=== PATIENT | male | born 1960 | race Caucasian/White ===

== ENCOUNTER → 2019-05-31 | Outpatient (CLI) | payer MEDICARE, MEDICAID, SELFPAY | PROVIDERS: Family Provider Nurse Practitioner; Visit Provider Nurse Practitioner | DX: C18.4 Malignant neoplasm of transverse colon (principal); R91.1 Solitary pulmonary nodule; R53.83 Other fatigue; G62.0 Drug-induced polyneuropathy; T45.1X5A Adverse effect of antineoplastic and immunosuppressive drugs, initial encounter; I10 Essential (primary) hypertension; I95.9 Hypotension, unspecified; E78.5 Hyperlipidemia, unspecified; J44.9 Chronic obstructive pulmonary disease, unspecified; G47.33 Obstructive sleep apnea (adult) (pediatric); F32.9 Major depressive disorder, single episode, unspecified; Z90.49 Acquired absence of other specified parts of digestive tract; Z86.79 Personal history of other diseases of the circulatory system | CPT/HCPCS: 99214 ==

== ENCOUNTER 2019-06-13 12:55 | Outpatient (CLI) | payer MEDICARE, MEDICAID, SELFPAY | END 2019-06-13 12:56 | disposition home or self-care (01) | LOC: ONCMED 13:04 | PROVIDERS: Family Provider Nurse Practitioner; PCP Nurse Practitioner; Visit Provider Nurse Practitioner | DX: Z53.9 Procedure and treatment not carried out, unspecified reason (principal) ==

== ENCOUNTER 2019-07-09 13:29 | Outpatient (CLI) | payer MEDICARE, MEDICAID, SELFPAY | END 2019-07-09 13:30 | disposition home or self-care (01) | LOC: ONCMED 13:33 | PROVIDERS: Family Provider Nurse Practitioner; PCP Nurse Practitioner; Visit Provider Nurse Practitioner | DX: C18.4 Malignant neoplasm of transverse colon (principal); C77.2 Secondary and unspecified malignant neoplasm of intra-abdominal lymph nodes; L27.1 Localized skin eruption due to drugs and medicaments taken internally; T45.1X5A Adverse effect of antineoplastic and immunosuppressive drugs, initial encounter; I12.9 Hypertensive chronic kidney disease with stage 1 through stage 4 chronic kidney disease, or unspecified chronic kidney disease; N18.9 Chronic kidney disease, unspecified; J44.9 Chronic obstructive pulmonary disease, unspecified; F32.9 Major depressive disorder, single episode, unspecified; E78.5 Hyperlipidemia, unspecified; G47.33 Obstructive sleep apnea (adult) (pediatric); F17.210 Nicotine dependence, cigarettes, uncomplicated; F10.21 Alcohol dependence, in remission; Z79.899 Other long term (current) drug therapy; Z79.82 Long term (current) use of aspirin; Z79.52 Long term (current) use of systemic steroids; Z79.51 Long term (current) use of inhaled steroids; Z90.49 Acquired absence of other specified parts of digestive tract; Z93.2 Ileostomy status | CPT/HCPCS: 99214 ==

== ENCOUNTER 2019-08-24 10:35 | Outpatient (CLI) | payer MEDICARE, MEDICAID, SELFPAY | END 2019-08-24 10:36 | disposition home or self-care (01) | LOC: RADWPI 10:40 | PROVIDERS: Family Provider Nurse Practitioner; PCP Nurse Practitioner; Visit Provider Nurse Practitioner | DX: Z01.89 Encounter for other specified special examinations (principal) ==

== ENCOUNTER 2019-08-31 07:38 | Outpatient (CLI) | payer MEDICARE, MEDICAID, SELFPAY ==
--- NOTE | 2019-08-31 08:02 | CT_ITS ---
WS: [id number] CT scan of the chest with IV contrast, additional two-dimensional coronal and sagittal reconstruction was performed. 08/31/2019 Clinical Data: PULMONARY NODULE Comparison: CT chest, 08/10/2018, CT chest 08/16/2017. DLP: 964.[address] scans at [facility] use at least one of these dose optimization techniques: automat ed exposure control; mA and/or kV adjustment per patient size (includes targeted exams where dose is matched to clinical indication); or iterative reconstruction. Findings: The peripheral 0.3 cm nodule in the left lower lobe is not changed. This is seen best on axial image 39 of 70. No masses or effusions are seen. The heart size is normal with no pericardial effusion. The pulmonary arterial system and thoracic aorta demonstrate no abnormalities or dilatations. The trachea bifurcat es normally into the bronchi. Thyroid gland shows no abnormalities. There is no axillary or significa nt mediastinal adenopathy. The upper abdomen demonstrates clips in the gallbladder fossa from a cholecystectomy. There is an aor tic stent graft. CT/CT chest w con* [id number] Impression: 1. Small left lower lobe nodule, 0.3 cm unchanged, and recommend no further CT follow-up. 2. Negative for acute cardiopulmonary disease.
[2019-08-31] MEDS: iohexol 300 mg/mL 100 mL Btl IV (08:23)
== END 2019-08-31 07:39 | disposition home or self-care (01) ==
LOC: RADWPI 07:42
PROVIDERS: Family Provider Nurse Practitioner; PCP Nurse Practitioner; Visit Provider Nurse Practitioner
DX: R91.1 Solitary pulmonary nodule (principal)
CPT/HCPCS: 71260; Q9967

== ENCOUNTER 2020-01-08 15:36 | Outpatient (CLI) | payer MEDICARE, MEDICAID, SELFPAY ==
--- NOTE | 2020-01-12 11:37 | ONC FU_ITS ---
Dr. Lopez Patient Follow-Up Note Patient: Cuate Brooks Unit #: [id number]: 1960 Dicatated By: Mohan Lopez M.D.Date of Visit:Jan 08, 2020 Onc Med Follow-up/Prog Note Chief Complaint: Colon cancer. 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 On 01/22/2019 he had presented to the [facility] emergency room with acute onset of right lower quadrant abdominal pain. His record indicates that he also was having nausea/vomiting, though he concurrently does not recall having any other symptoms prior to the onset of that illness. His CT abdomen/pelvis showed a 4 cm annular constricting neoplasm in the left transverse colon consistent with malignancy. There was distention of the colon proximal to the lesion. There was no other acute abnormality seen. The liver reportedly looked normal and there was no abdominal or retroperitoneal lymphadenopathy noted. He was transferred to [facility] and on 01/23/2019 he underwent exploratory laparotomy with subtotal colectomy, en bloc partial omentectomy, and end ileostomy. The findings included a constricting tumor in the distal transverse colon with omentum adhered to it. There was ascites present, but there was no gross evidence of metastatic disease and there was no evidence of bowel perforation. The procedure was extended to include a subtotal colectomy due to his inferior mesenteric artery hadn't been compromised by a previous endovascular aneurysm repair. Pathology showed moderately differentiated adenocarcinoma with invasion through the muscularis propria into the pericolonic fat. The serosal surface was noted to be free by 0.24 mm. A total of 5 incidental tubular adenomas were noted in the surgical specimen. There was involvement in 4 of 53 lymph nodes. I had seen him initially on 03/05/2019. With stage IIIB disease, he was recommended to undergo adjuvant chemotherapy with 4 cycles of oxaliplatin/Xeloda. His medical illnesses include hypertension, hyperlipidemia, COPD, obstructive sleep apnea, and depression. He had previously been on CT surveillance for a left lower lobe pulmonary nodule. His surgical history includes a previous endovascular repair of abdominal aortic aneurysm. He has history of smoking 1 pack of cigarettes daily for 45 years. INTERIM HISTORY: On 03/15/2019 he began cycle 1 of adjuvant chemotherapy with oxaliplatin/Xeloda. He experienced no acute toxicity with the initial oxaliplatin infusion. But he did have worsening of his neuropathy following the treatment, and he did receive a dose reduction in the oxaliplatin with his second cycle of treatment on 04/11/2019. He had a further dose reduction with cycle 3 on 05/02/2019. Following a delay due to worsening neuropathy, he began his 4th cycle on 05/31/2019 with omission of the oxaliplatinin. Restaging PET/CT on 07/14/2019 showed no evidence for recurrent or residual malignancy. With those findings he was recommended to continue on observation/expectant management. As related by the patient, his clinical course was subsequently complicated by a hospitalization for respiratory failure. He indicates that he was on the ventilator for 7 days. It was then further complicated by a stroke which left him weak on his left side. He has been showing gradual recovery. He is seen for a scheduled visit. He says his strength is starting to build gradually. He is now getting back to work. His ECOG score is 1. He has good appetite. His weight is up about 5 pounds. He does not have fever or night sweats. He is short of breath at times, and he has a smoker's cough. He is still smoking 2 packs of cigarettes daily. He has not been having chest pain. He has no GI or complaints. He has some pain in his knuckles, but no other joint or bone pain. He says his left side is still a little bit weak. He has numbness in his toes and he says it feels like he has sand in his socks. He also feels numb across his butt. Medications: Aspirin 1 Tablet (of 81 mg) Oral daily, Atorvastatin Calcium 1 Tablet (of 10 mg) Oral daily, Furosemide 1 Tablet (of 20 mg) Oral daily, hydroCHLOROthiazide 0.5 Tablet (of 25 mg) Oral daily, Metoprolol Tartrate 0.5 Tablet (of 25 mg) Oral b.i.d., Multivitamin Adult 1 Tablet Oral daily, Potassium Chloride ER 4 Tablet (of 20 meq) Tablet, controlled release Oral t.i.d., predniSONE (20 mg) Tablet Oral Take as Directed, PROzac 1 Capsule (of 40 mg) Oral daily, Spiriva HandiHaler 2 Puff(s) (of 18 mcg) Capsule Inhalation daily, Symbicort 2 Puff(s) Aerosol Inhalation b.i.d. Allergies: Doxycycline Hyclate, Lisinopril, and Losartan Potassium. Review of Systems: Constitutional - He says his energy is starting to build back up. He is able to do light work. Appetite is good. His weight is up 5 pounds. He does not have fever or night sweats. ECOG score is 1, ENMT - No sinus congestion/drainage. No mouth sores. No sore throat or difficulty swallowing, Hematologic/Lymphatic - He bruises easily, Respiratory - He has occasional shortness of breath. He has a chronic smoker's cough. No pleuritic pain or hemoptysis, Cardiovascular - No angina pain. No palpitations, Gastrointestinal - No nausea or vomiting. No heartburn or acid reflux. No diarrhea or constipation. No blood in the stool or black stools, Genitourinary (M) - No dysuria or hematuria. No urinary frequency. No urgency or incontinence, Musculoskeletal - He has some pain in his knuckles. He has no other joint or bone pain, Integumentary - No skin complications, Neurologic - No headache or dizziness. 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 He also has some numbness across his buttocks. He has left sided weakness, Psychiatric - No anxiety or depression. No insomnia. Vital Signs: Performed on Jan 08, 2020 11:15 Height - 70.00 in Weight - 223.8 lbs (HIGH) BSA - 2.19 sq.m BMI - 32.11 (HIGH) Temperature - 98.0 F (LOW) Pulse - 78 /min Respiration - 24 /min BP - 135/83 mm(hg) O2 Sat - 98 % Pain - 0 Physical Examination: Constitutional - He looks pretty good generally, Eyes - Sclerae nonicteric. Conjunctivae clear, ENMT - No lesions noted in the oral cavity, Hematologic/Lymphatic - No cervical, clavicular, or axillary adenopathy, Respiratory - Lungs sound clear, Cardiovascular - Heart rhythm is regular. There is no murmur, gallop, or rub noted, Abdomen - Soft. Liver and spleen are not enlarged. There is no abdominal mass or ascites noted and there is no inguinal adenopathy, Extremities - No edema, Neurologic - There is only mild residual weakness on the left side. Lab/Imaging: Test performed on Nov 21, 2019 00:01 Glucose 203 mg/dL BUN 19 mg/dL Creatinine 1.44 mg/dL Cr Clearance (Est) 77.21 mL/min Sodium 137 mmol/L Potassium 4.1 mmol/L Chloride 107 mmol/L CO2 24 mmol/L Calcium 8.2 mg/dL Protein, Total 7.1 g/dL Albumin 3.2 g/dL Bilirubin, Total 0.5 mg/dL Alkaline Phosphatase 86 IU/L AST (SGOT) 39 IU/L ALT (SGPT) 43 IU/L WBC 6.4 10^9/L RBC 5.33 10^12/L HGB 17.4 g/dL HCT 49.2 % MCV 92.3 fl MCH 32.6 pg MCHC 35.4 g/dL RDW 13.4 % Platelet Count 190 10^9/L MPV 9.7 fL Neutrophils (Gran) 4.1 10^9/L Lymphocytes 1.6 10^9/L Monocytes 0.5 10^9/L Eosinophils 0.2 10^9/L Basophils 0.0 10^9/L Manual Lymphocytes 24.7 % Manual Monocytes 7.8 % Manual Eosinophils 2.5 % Manual Basophils 0.8 % CEA 2.3 ng/mL Impression: 1. 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 2. He underwent subtotal colectomy with partial omentectomy and with in the ileostomy on 01/23/2019. 3. He has been on surveillance for left lower lobe pulmonary nodule. It was stable as of his chest CT on 08/10/2018. His other medical illnesses include: 4. He has history of hypertension, but recently with low blood pressure. 5. Hyperlipidemia. 6. COPD. 7. Obstructive sleep apnea. 8. He has undergone endovascular repair of abdominal aortic aneurysm. 9. Depression. He is undergoing adjuvant chemotherapy with 4 cycles of oxaliplatin/Xeloda. He began cycle 1 on 03/15/2019. He experienced no acute toxicity with the initial infusion of oxaliplatin. He did have a significant decline in his energy/activity tolerance beginning about day 5. His blood counts remained adequate. He had some worsening of his neuropathy. He did receive a dose reduction of the oxaliplatin with cycle 2 on 04/11/2019 and a further dose reduction with cycle 3 on 05/02/2019. Despite those dose reductions, he continued to have pretty severe fatigue and he had worsening neuropathy. Following a treatment delay, he continue with cycle 4 on 05/31/2020, but with omission of the oxaliplatinin. Restaging PET/CT on 07/14/2019 showed no evidence for recurrent or residual malignancy. With those findings he was recommended to continue on observation/expectant management. His subsequent clinical course was complicated by hospitalization for acute respiratory failure requiring mechanical ventilation. He apparently then also suffered a right hemispheric stroke. He does appear to be showing adequate recovery. Thus far there has been no evidence of recurrence of the colon cancer. Plan: He continues on observation/expectant management. He will be scheduled for a 6-month interval surveillance CT scan, which will be due sometime next month. I will tentatively plan a follow-up visit in 6 months. In the meantime, also will check on his surveillance colonoscopy schedule. Signed By: Mohan Lopez M.D. <<Signature on File>>
== END 2020-01-08 15:37 | disposition home or self-care (01) ==
LOC: ONCMED 15:41
PROVIDERS: Visit Provider Internal Medicine Medical Oncology
DX: Z08 Encounter for follow-up examination after completed treatment for malignant neoplasm (principal); Z85.038 Personal history of other malignant neoplasm of large intestine; Z90.49 Acquired absence of other specified parts of digestive tract; Z92.21 Personal history of antineoplastic chemotherapy; I10 Essential (primary) hypertension; I95.9 Hypotension, unspecified; E78.5 Hyperlipidemia, unspecified; J44.9 Chronic obstructive pulmonary disease, unspecified; G47.33 Obstructive sleep apnea (adult) (pediatric); F32.9 Major depressive disorder, single episode, unspecified; Z86.73 Personal history of transient ischemic attack (TIA), and cerebral infarction without residual deficits; Z93.2 Ileostomy status
CPT/HCPCS: G0463

== ENCOUNTER 2020-03-19 07:59 | Outpatient (CLI) | payer MEDICARE, MEDICAID, SELFPAY ==
--- NOTE | 2020-03-19 08:00 | CT_ITS ---
WS: [id number] CT CHEST, ABDOMEN, AND PELVIS TECHNIQUE: Contrast-enhanced CT of the chest, abdomen, and pelvis with coronal and sagittal reformatt ed images. CLINICAL INFORMATION: COLON CANCER, PULMONARY NODULE COMPARISON: CT chest August 31, 2019 PET/CT to January 24, 2020 CT abdomen pelvis January 2019 and CTA c hest August 2018 CTA September 07, 2016 DLP: 2442.[address] scans at [facility] use at least one of these dose optimization techniques: automat ed exposure control; mA and/or kV adjustment per patient size (includes targeted exams where dose is matched to clinical indication); or iterative reconstruction. CT CHEST: Stable 3 mm nodule left lower lobe is unchanged. Severe chronic emphysematous changes are stable. Hyp erinflation. No new pulmonary parenchymal opacities. No acute pulmonary infiltrates. No pleural fluid. No focal pneumonia. No mediastinal or hilar lymphad enopathy. Normal caliber thoracic aorta. Moderate atheromatous disease. CT ABDOMEN AND PELVIS: Liver is normal in appearance. Normal GE junction. Normal spleen. Normal pancreas. Adrenal glands are normal. Small right renal cyst. No hydronephrosis. Right lower quadrant ostomy. Infrarenal abdominal aortic aneurysm with aortic and biiliac endograft. No periaortic or upper abdom inal lymphadenopathy. Postoperative changes transverse colon with right lower quadrant ostomy. No rolan dence of recurrent obstructing lesion. No evidence of small or large bowel obstruction. No pelvic or inguinal lymphadenopathy. Incidental fat-containing inguinal hernias. CT/CT chest abd pel w con* IMPRESSION: 1. Stable 3 mm nodule left lower lobe. 2. No mediastinal or hilar lymphadenopathy. 3. Postoperative changes transverse colon for neoplasm resection with right l ower quadrant ostomy. 4. No adenopathy in the chest abdomen or pelvis. 5. No evidence of residual or recurrent disease.
[2020-03-19] MEDS: iohexol 300 mg/mL 50 mL Btl PO (09:46)
[2020-03-19 09:48] LABS: Blood Urea Nitrogen 14 mg/dL (8-23); Glomerular Filtration Rate 47.6 mL/min (90-130)
[2020-03-19] MEDS: iodixanol 320 mg/mL 100mL Btl IV (09:56)
== END 2020-03-19 08:00 | disposition home or self-care (01) ==
LOC: RADWPI 08:03
PROVIDERS: PCP Nurse Practitioner; Visit Provider Internal Medicine Medical Oncology
DX: C18.4 Malignant neoplasm of transverse colon (principal); R91.1 Solitary pulmonary nodule
CPT/HCPCS: 71260; 74177; 82565; 84520; Q9967

== ENCOUNTER 2020-07-10 12:39 | Outpatient (CLI) | payer MEDICARE, MEDICAID, SELFPAY ==
--- NOTE | 2020-07-12 10:42 | ONC FU_ITS ---
Dr. Lopez Patient Follow-Up Note Patient: Cuate Brooks Unit #: [id number]: 1960 Dicatated By: Mohan Lopez M.D.Date of Visit:Jul 10, 2020 Onc Med Follow-up/Prog Note Chief Complaint: Colon cancer. 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 On 01/22/2019 he had presented to the [facility] emergency room with acute onset of right lower quadrant abdominal pain. His record indicates that he also was having nausea/vomiting, though he concurrently does not recall having any other symptoms prior to the onset of that illness. His CT abdomen/pelvis showed a 4 cm annular constricting neoplasm in the left transverse colon consistent with malignancy. There was distention of the colon proximal to the lesion. There was no other acute abnormality seen. The liver reportedly looked normal and there was no abdominal or retroperitoneal lymphadenopathy noted. He was transferred to [facility] and on 01/23/2019 he underwent exploratory laparotomy with subtotal colectomy, en bloc partial omentectomy, and end ileostomy. The findings included a constricting tumor in the distal transverse colon with omentum adhered to it. There was ascites present, but there was no gross evidence of metastatic disease and there was no evidence of bowel perforation. The procedure was extended to include a subtotal colectomy due to his inferior mesenteric artery hadn't been compromised by a previous endovascular aneurysm repair. Pathology showed moderately differentiated adenocarcinoma with invasion through the muscularis propria into the pericolonic fat. The serosal surface was noted to be free by 0.24 mm. A total of 5 incidental tubular adenomas were noted in the surgical specimen. There was involvement in 4 of 53 lymph nodes. I had seen him initially on 03/05/2019. With stage IIIB disease, he was recommended to undergo adjuvant chemotherapy with 4 cycles of oxaliplatin/Xeloda. He began cycle 1 on 03/15/2019. 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 He had a further dose reduction with cycle 3 on 05/02/2019. Following a delay due to worsening neuropathy, he began his 4th cycle on 05/31/2019 with omission of the oxaliplatinin. Restaging PET/CT on 07/14/2019 showed no evidence for recurrent or residual malignancy. He was then followed on observation/expectant management. His subsequent clinical course was complicated by a hospitalization for respiratory failure requiring mechanical ventilation. It was then further complicated by a stroke which left him weak on his left side. He had gradual recovery. His medical illnesses include hypertension, hyperlipidemia, COPD, obstructive sleep apnea, and depression. He had previously been on CT surveillance for a left lower lobe pulmonary nodule. His surgical history includes a previous endovascular repair of abdominal aortic aneurysm. He has history of smoking 1 pack of cigarettes daily for 45 years. He is seen for a scheduled visit. He indicates that he was diagnosed with COVID-19 virus infection 3 weeks ago. He had associated pneumonia, but he did not require hospitalization. His energy has been low and he has had activity tolerance. ECOG score is 2. His appetite had declined after starting Wellbutrin for smoking cessation. He had to stop it because of side effects, though. He has not had fever or night sweats. He has chronic sinus drainage and sore throat, and he also has nonproductive cough. He is having shortness of breath. He has had a few episodes of chest pain. He does not complain of nausea. He occasionally has acid reflux. He says his bowel function is unchanged. Bladder function remains adequate, though he complains that he cannot hold his urine very long. He has no significant joint or bone pain, but he says he has started the supplement for thin bones. He does not complain of headache. He does have some dizziness. He has some residual neuropathy in his toes. He is still a little weak on the left side. He has some ongoing problems with anxiety. Medications: Aspirin 1 Tablet (of 81 mg) Oral daily, Atorvastatin Calcium 1 Tablet (of 10 mg) Oral daily, Cholecalciferol 1 (100 mcg ) Tablet Oral daily, Furosemide 1 Tablet (of 40 mg) Oral b.i.d., hydroCHLOROthiazide 0.5 Tablet (of 25 mg) Oral daily, Metoprolol Tartrate 0.5 Tablet (of 25 mg) Oral b.i.d., [place] Garlic Ear Drops Solution Otic, Multivitamin Adult 1 Tablet Oral daily, Potassium Chloride ER 4 Tablet (of 20 meq) Tablet, controlled release Oral t.i.d., predniSONE (20 mg) Tablet Oral Take as Directed, PROzac 1 Capsule (of 40 mg) Oral daily, Spiriva HandiHaler 2 Puff(s) (of 18 mcg) Capsule Inhalation daily, Symbicort 2 Puff(s) Aerosol Inhalation b.i.d., Vitamin D-Vitamin K Tablet Oral Allergies: Doxycycline Hyclate, Lisinopril, and Losartan Potassium. Vital Signs: Performed on Jul 10, 2020 13:01 Height - 70.00 in Weight - 217.6 lbs (LOW) BSA - 2.16 sq.m BMI - 31.22 (HIGH) Temperature - 98 F (LOW) Pulse - 89 /min Respiration - 17 /min BP - 117/77 mm(hg) O2 Sat - 95 % (LOW) Pain - 6 Physical Examination: Constitutional - He appears somewhat weak generally, Eyes - Sclerae nonicteric. Conjunctivae clear, ENMT - No lesions noted in the oral cavity, Hematologic/Lymphatic - No cervical, clavicular, or axillary adenopathy, Respiratory - Lungs sound clear with diminished air movement bilaterally, Cardiovascular - Heart rhythm is regular. There is no murmur, gallop, or rub noted, Abdomen - Soft. Liver and spleen are not enlarged. There is no abdominal mass or ascites noted and there is no inguinal adenopathy, Extremities - No edema, Neurologic - There is minimal residual weakness on the left side. Lab/Imaging: Test performed on Jul 09, 2020 12:54 Glucose 155 mg/dL BUN 11 mg/dL Creatinine 1.58 mg/dL Cr Clearance (Est) 69.60 mL/min Sodium 135 mmol/L Potassium 4.5 mmol/L Chloride 104 mmol/L CO2 25 mmol/L Calcium 10.4 mg/dL Protein, Total 7.3 g/dL Albumin 4 g/dL Bilirubin, Total 0.5 mg/dL Alkaline Phosphatase 123 IU/L AST (SGOT) 36 IU/L ALT (SGPT) 52 IU/L WBC 6.3 10^9/L RBC 5.02 10^12/L HGB 16.5 g/dL HCT 48.3 % MCV 96.2 fl MCH 32.9 pg MCHC 34.2 g/dL RDW 14.8 % Platelet Count 216 10^9/L Neutrophils (Gran) 3.8 10^9/L Lymphocytes 1.8 10^9/L Monocytes 0.5 10^9/L Eosinophils 0.1 10^9/L Basophils 0 10^9/L CEA 3 ng/mL Problem List: 1. 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 He underwent subtotal colectomy with partial omentectomy and with in the ileostomy on 01/23/2019. 2. He has been on surveillance for left lower lobe pulmonary nodule. 3. Hypertension. 4. Hyperlipidemia. 5. COPD. 6. Obstructive sleep apnea. 7. He has undergone endovascular repair of abdominal aortic aneurysm. 8. Anxiety/depression. 9. He suffered a right hemispheric stroke in association with hospitalization for respiratory failure requiring mechanical ventilation. 10. He was diagnosed with COVID-19 virus infection in June 2020. Problems Addressed with this Encounter and Plan: 1. 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 He underwent subtotal colectomy with partial omentectomy and with in the ileostomy on 01/23/2019. He was given adjuvant chemotherapy with 4 cycles of oxaliplatin/Xeloda, completed in May 2020. He required dose reductions in the oxaliplatin due to neuropathy, and it was admitted with cycle 4. He has since then been followed on observation/expectant management. He is due now for surveillance CT scans, and those will be scheduled. In the absence of any evidence of recurrence/progression of the colon cancer, I will just see him again in 6 months. As he has had a subtotal colectomy, he may not require any endoscopic surveillance, but I will verify this with Dr. Mora. 2. He has had CT evidence of left lower lobe pulmonary nodule. It will require ongoing surveillance. Signed By: Mohan Lopez M.D. <<Signature on File>>
== END 2020-07-10 12:40 | disposition home or self-care (01) ==
LOC: ONCMED 12:42
PROVIDERS: PCP Nurse Practitioner; Visit Provider Internal Medicine Medical Oncology
DX: C18.4 Malignant neoplasm of transverse colon (principal); R91.1 Solitary pulmonary nodule; I10 Essential (primary) hypertension; E78.5 Hyperlipidemia, unspecified; J44.9 Chronic obstructive pulmonary disease, unspecified; G47.33 Obstructive sleep apnea (adult) (pediatric); I71.4 Abdominal aortic aneurysm, without rupture; F41.9 Anxiety disorder, unspecified; F32.9 Major depressive disorder, single episode, unspecified; Z86.73 Personal history of transient ischemic attack (TIA), and cerebral infarction without residual deficits; Z86.16 Personal history of COVID-19
CPT/HCPCS: 99214

== ENCOUNTER 2021-01-08 09:45 | Outpatient (CLI) | payer MEDICARE, MEDICAID, SELFPAY ==
--- NOTE | 2021-01-08 09:51 | CT_ITS ---
WS: [id number] CT CHEST, ABDOMEN AND PELVIS WITH CONTRAST HISTORY: COLON CANCER/PULMONARY NODULE TECHNIQUE: Contiguous 5 mm axial imaging performed through the chest, abdomen and pelvis with IV cont rast, oral contrast has been provided. Coronal and sagittal reformats chest. Coronal and sagittal ref ormats through the abdomen and pelvis. All CT scans at [facility] use at least one of the se dose optimization techniques: automated exposure control; mA and/or kV adjustment per patient size (includes targeted exams where dose is matched to clinical indication); or iterative reconstruction. CONTRAST: Omnipaque 300; 95 mL IV. DLP: 1866.03 mGy.cm COMPARISON: PET/CT 07/14/[address] chest, abdomen and pelvis 03/19/2020. Chest CT: Paraseptal and centrilobular emphysematous changes. Mild interstitial thickening in the per iphery. No new pulmonary nodule or mass. Again noted is a 3 mm noncalcified pulmonary nodule in the L EFT lower lobe which is stable. Mild atherosclerotic plaque within the aorta. Atherosclerotic plaque within the descending thoracic aorta is slightly irregular and asymmetric. The intimal thickening pau sures up to 6.4 mm but not progressed. Normal size pulmonary artery. Heart size is normal with scatte red coronary artery calcifications. No mediastinal or hilar adenopathy. No axillary adenopathy. Abdomen CT: Hypoechoic area in the posterior LEFT lobe of liver measures 12 mm. This may have been pr esent on the prior study but slightly greater in size. No additional abnormalities are identified. Pr ior cholecystectomy. Normal size spleen. No pancreatic abnormality. No adrenal mass. Cortical cyst upper pole RIGHT kidney. No obstruction or solid mass. Focal area of cortical thinning involving the lower pole cortex of the LEFT kidney is unchanged. There is no obstruction or solid mas s. Status post endovascular stent grafting of the abdominal aorta extending into the iliac arteries. No increase in size or change in the appearance of the [place] aneurysm. Ventral abdominal wall hernia . RIGHT lower quadrant ileostomy site. There is no obstruction. Near complete colectomy. There is no re currence at the resection site. No ascites or adenopathy. Pelvic CT: No free fluid or ascites. Urinary bladder is normal. New mild compression deformities at T8 and T9 with mixed sclerotic and lytic changes. No associated s oft tissue mass. CT/CT chest abd pel w con* IMPRESSION: 1. No interval change in appearance of the chest. 2. New but indeterminate 12 mm area of decreased attenuation in the posterior LEFT lobe of the liver. Early metastatic lesions not excluded. 3. New compression deformities with mixed sclerotic and lytic changes involvin g T8 and T9. Metastatic pathological fractures not excluded. Consider PET/CT im aging to evaluate the liver and osseous structures. 4. Subtotal colectomy unchanged. The RIGHT lower quadrant ileostomy site is st able. 5. Status post endovascular grafting of the abdominal aorta. 6. Prior cholecystectomy.
[2021-01-08] MEDS: iohexol 300 mg/mL 50 mL Btl IV (09:57)
[2021-01-08] MEDS: iodixanol 320 mg/mL 100mL Btl IV (11:06)
== END 2021-01-08 09:46 | disposition home or self-care (01) ==
PROVIDERS: PCP Nurse Practitioner; Visit Provider Internal Medicine Medical Oncology
DX: C18.4 Malignant neoplasm of transverse colon (principal); R91.1 Solitary pulmonary nodule; Z90.49 Acquired absence of other specified parts of digestive tract
CPT/HCPCS: 71260; 74177

== ENCOUNTER 2021-01-13 13:24 | Outpatient (CLI) | payer MEDICARE, MEDICAID, SELFPAY ==
--- NOTE | 2021-01-13 14:38 | ONC FU_ITS ---
Dr. Lopez Patient Follow-Up Note Patient: Cuate Brooks Unit #: [id number]: 1960 Dicatated By: Mohan Lopez M.D.Date of Visit:Jan 13, 2021 Onc Med Follow-up/Prog Note Chief Complaint: Colon cancer. 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 On 01/22/2019 he had presented to the [facility] emergency room with acute onset of right lower quadrant abdominal pain. His record indicates that he also was having nausea/vomiting, though he concurrently does not recall having any other symptoms prior to the onset of that illness. His CT abdomen/pelvis showed a 4 cm annular constricting neoplasm in the left transverse colon consistent with malignancy. There was distention of the colon proximal to the lesion. There was no other acute abnormality seen. The liver reportedly looked normal and there was no abdominal or retroperitoneal lymphadenopathy noted. He was transferred to [facility] and on 01/23/2019 he underwent exploratory laparotomy with subtotal colectomy, en bloc partial omentectomy, and end ileostomy. The findings included a constricting tumor in the distal transverse colon with omentum adhered to it. There was ascites present, but there was no gross evidence of metastatic disease and there was no evidence of bowel perforation. The procedure was extended to include a subtotal colectomy due to his inferior mesenteric artery hadn't been compromised by a previous endovascular aneurysm repair. Pathology showed moderately differentiated adenocarcinoma with invasion through the muscularis propria into the pericolonic fat. The serosal surface was noted to be free by 0.24 mm. A total of 5 incidental tubular adenomas were noted in the surgical specimen. There was involvement in 4 of 53 lymph nodes. I had seen him initially on 03/05/2019. With stage IIIB disease, he was recommended to undergo adjuvant chemotherapy with 4 cycles of oxaliplatin/Xeloda. He began cycle 1 on 03/15/2019. 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 He had a further dose reduction with cycle 3 on 05/02/2019. Following a delay due to worsening neuropathy, he began his 4th cycle on 05/31/2019 with omission of the oxaliplatinin. Restaging PET/CT on 07/14/2019 showed no evidence for recurrent or residual malignancy. He was then followed on observation/expectant management. His subsequent clinical course was complicated by a hospitalization for respiratory failure requiring mechanical ventilation. It was then further complicated by a stroke which left him weak on his left side. He had gradual recovery. His medical illnesses include hypertension, hyperlipidemia, COPD, obstructive sleep apnea, and depression. He had previously been on CT surveillance for a left lower lobe pulmonary nodule. His surgical history includes a previous endovascular repair of abdominal aortic aneurysm. He has history of smoking 1 pack of cigarettes daily for 45 years. INTERIM HISTORY: His surveillance CT scans on 01/08/2021 showed a hypoechoic area in the left lobe of the liver measuring 12 mm. It may have been present on the prior study, but with slight increase in size. The appearance was indeterminate, but early metastatic disease was not excluded. Also noted were new compression deformities with mixed sclerotic and lytic changes involving the T8 and T9 vertebral bodies. Metastatic pathologic fractures were not excluded. He is seen for a scheduled visit. He complains that his energy is terrible. He gets exhausted very easily. He does not have much activity, but he is ambulatory. ECOG score is 2. Appetite is okay, but he says he has been eating less. His weight is down 6 pounds. He does not have fever or night sweats. He has shortness of breath with activity. He is on inhalers and he uses oxygen at night. He has a smoker's cough. He does not complain of chest pain. He has no GI or complaints. He complains that his left knee pops. He has no other joint or bone pain. In particular, he is not having neck or back pain. He does not complain of headache or dizziness. He has some numbness in his left foot and toes. He has anxiety and depression. He has an appointment to see someone about that next month. Medications: Aspirin 1 Tablet (of 81 mg) Oral daily, Atorvastatin Calcium 1 Tablet (of 10 mg) Oral daily, hydroCHLOROthiazide 0.5 Tablet (of 25 mg) Oral daily, Metoprolol Tartrate 0.5 Tablet (of 25 mg) Oral b.i.d., [place] Garlic Ear Drops Solution Otic, Multivitamin Adult 1 Tablet Oral daily, Potassium Chloride ER 4 Tablet (of 20 meq) Tablet, controlled release Oral t.i.d., predniSONE (20 mg) Tablet Oral Take as Directed, PROzac 1 Capsule (of 40 mg) Oral daily, Spiriva HandiHaler 2 Puff(s) (of 18 mcg) Capsule Inhalation daily, Symbicort 2 Puff(s) Aerosol Inhalation b.i.d., Vitamin D-Vitamin K Tablet Oral Allergies: Doxycycline Hyclate, Lisinopril, and Losartan Potassium. Vital Signs: Performed on Jan 13, 2021 13:46 Height - 70.00 in Weight - 211.4 lbs (LOW) BSA - 2.14 sq.m BMI - 30.33 (HIGH) Temperature - 97.9 F (LOW) Pulse - 84 /min Respiration - 18 /min BP - 102/68 mm(hg) O2 Sat - 93 % (LOW) Pain - 0 Fatigue - 8 Physical Examination: Constitutional - He appears somewhat weak generally, Eyes - Sclerae nonicteric. Conjunctivae clear, ENMT - No lesions noted in the oral cavity, Hematologic/Lymphatic - No cervical, clavicular, or axillary adenopathy, Respiratory - Lungs sound clear with diminished air movement bilaterally, Cardiovascular - Heart rhythm is regular. There is no murmur, gallop, or rub noted, Abdomen - Mildly distended but soft. Liver and spleen are not enlarged. There is no abdominal mass or ascites noted and there is no inguinal adenopathy, Back/Spine - There is no bony tenderness in the spine or ribs, Extremities - No edema, Neurologic - There is minimal residual weakness on the left side. Lab/Imaging: Test performed on Jan 07, 2021 10:37 Glucose 113 mg/dL BUN 8 mg/dL Creatinine 1.38 mg/dL Sodium 137 mmol/L Potassium 4.5 mmol/L Chloride 105 mmol/L CO2 25 mmol/L Calcium 8.6 mg/dL WBC 6.1 10^9/L RBC 5.32 10^12/L HGB 16.7 g/dL HCT 49.9 % MCV 93.8 fl MCH 31.4 pg MCHC 33.5 g/dL RDW 13.2 % Platelet Count 199 10^9/L MPV 9.4 fL Neutrophils (Gran) 3.8 10^9/L Lymphocytes 1.5 10^9/L Monocytes 0.6 10^9/L Eosinophils 0.2 10^9/L Basophils 0.0 10^9/L Manual Segs 61.9 % Manual Lymphocytes 24.6 % Manual Monocytes 9.8 % Manual Eosinophils 2.6 % Manual Basophils 0.8 % Atypical Lymphs 1.5 % CEA 2.4 ng/mL Problem List: 1. 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 He underwent subtotal colectomy with partial omentectomy and with in the ileostomy on 01/23/2019. 2. He has been on surveillance for left lower lobe pulmonary nodule. 3. Hypertension. 4. Hyperlipidemia. 5. COPD. 6. Obstructive sleep apnea. 7. He has undergone endovascular repair of abdominal aortic aneurysm. 8. Anxiety/depression. 9. He suffered a right hemispheric stroke in association with hospitalization for respiratory failure requiring mechanical ventilation. 10. He was diagnosed with COVID-19 virus infection in June 2020. Problems Addressed with this Encounter and Plan: 1. 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 He underwent subtotal colectomy with partial omentectomy and with in the ileostomy on 01/23/2019. He was given adjuvant chemotherapy with 4 cycles of oxaliplatin/Xeloda, completed in May 2020. He required dose reductions in the oxaliplatin due to neuropathy, and it was admitted with cycle 4. He has since then been followed on observation/expectant management. He has continued to have fairly marginal performance status. His current CT scans show an indeterminate but somewhat suspicious lesion in the left hepatic lobe and new compression deformities with associated sclerotic and lytic changes involving the T8 and T9 vertebral bodies. Overall, the findings are suspicious for metastatic disease. He will be scheduled now for PET/CT. He will have further evaluation as indicated. 2. He has had CT evidence of left lower lobe pulmonary nodule. It has remained stable during surveillance. Signed By: Mohan Lopez M.D. <<Signature on File>>
== END 2021-01-13 13:25 | disposition home or self-care (01) ==
PROVIDERS: PCP Nurse Practitioner; Visit Provider Internal Medicine Medical Oncology
DX: Z08 Encounter for follow-up examination after completed treatment for malignant neoplasm (principal); Z85.038 Personal history of other malignant neoplasm of large intestine; Z85.118 Personal history of other malignant neoplasm of bronchus and lung; I10 Essential (primary) hypertension; E78.5 Hyperlipidemia, unspecified; J44.9 Chronic obstructive pulmonary disease, unspecified; G47.33 Obstructive sleep apnea (adult) (pediatric); I71.4 Abdominal aortic aneurysm, without rupture; F41.9 Anxiety disorder, unspecified; F32.9 Major depressive disorder, single episode, unspecified; Z86.73 Personal history of transient ischemic attack (TIA), and cerebral infarction without residual deficits; Z86.16 Personal history of COVID-19; Z79.899 Other long term (current) drug therapy; Z92.21 Personal history of antineoplastic chemotherapy
CPT/HCPCS: 99214

== ENCOUNTER 2021-05-07 10:15 | Outpatient (CLI) | payer MEDICARE, MEDICAID, SELFPAY ==
--- NOTE | 2021-05-10 08:59 | ONC FU_ITS ---
Dr. Lopez Patient Follow-Up Note Patient: Cuate Brooks Unit #: [id number]: 1960 Dicatated By: Mohan Lopez M.D.Date of Visit:May 07, 2021 Onc Med Follow-up/Prog Note Chief Complaint: Colon cancer. 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 On 01/22/2019 he had presented to the [facility] emergency room with acute onset of right lower quadrant abdominal pain. His record indicates that he also was having nausea/vomiting, though he concurrently does not recall having any other symptoms prior to the onset of that illness. His CT abdomen/pelvis showed a 4 cm annular constricting neoplasm in the left transverse colon consistent with malignancy. There was distention of the colon proximal to the lesion. There was no other acute abnormality seen. The liver reportedly looked normal and there was no abdominal or retroperitoneal lymphadenopathy noted. [facility] and on 01/23/2019 he underwent exploratory laparotomy with subtotal colectomy, en bloc partial omentectomy, and end ileostomy. The findings included a constricting tumor in the distal transverse colon with omentum adhered to it. There was ascites present, but there was no gross evidence of metastatic disease and there was no evidence of bowel perforation. The procedure was extended to include a subtotal colectomy due to his inferior mesenteric artery hadn't been compromised by a previous endovascular aneurysm repair. Pathology showed moderately differentiated adenocarcinoma with invasion through the muscularis propria into the pericolonic fat. The serosal surface was noted to be free by 0.24 mm. A total of 5 incidental tubular adenomas were noted in the surgical specimen. There was involvement in 4 of 53 lymph nodes. I had seen him initially on 03/05/2019. With stage IIIB disease, he was recommended to undergo adjuvant chemotherapy with 4 cycles of oxaliplatin/Xeloda. He began cycle 1 on 03/15/2019. 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 He had a further dose reduction with cycle 3 on 05/02/2019. Following a delay due to worsening neuropathy, he began his 4th cycle on 05/31/2019 with omission of the oxaliplatinin. Restaging PET/CT on 07/14/2019 showed no evidence for recurrent or residual malignancy. He was then followed on observation/expectant management. His subsequent clinical course was complicated by a hospitalization for respiratory failure requiring mechanical ventilation. It was then further complicated by a stroke which left him weak on his left side. He had gradual recovery. His medical illnesses include hypertension, hyperlipidemia, COPD, obstructive sleep apnea, and depression. He had previously been on CT surveillance for a left lower lobe pulmonary nodule. His surgical history includes a previous endovascular repair of abdominal aortic aneurysm. He has history of smoking 1 pack of cigarettes daily for 45 years. INTERIM HISTORY: His surveillance CT scans on 01/08/2021 showed a hypoechoic area in the left lobe of the liver measuring 12 mm. It may have been present on the prior study, but with slight increase in size. The appearance was indeterminate, but early metastatic disease was not excluded. Also noted were new compression deformities with mixed sclerotic and lytic changes involving the T8 and T9 vertebral bodies. Metastatic pathologic fractures were not excluded. Further evaluation with PET/CT on 01/17/2021 showed a 2.6 cm hypodensity in the left hepatic lobe with SUV 5.8, strongly suspicious for hepatic metastatic disease. Small retroperitoneal lymph nodes appeared to be reactive. There were no findings to indicate osseous or other metastatic disease. With those findings, he was referred to Dr. Mendoza and on 03/05/2021 he underwent exploratory laparotomy with left lateral hepatectomy (resection of segment 2 and 3). Pathology confirmed metastatic colon cancer with negative margins. He is seen for a followup visit. He has been feeling good generally. He has limited activity tolerance, but he is able to do light work. ECOG score is 1. He has good appetite. He is watching his diet. He does not have fever or night sweats. He has a smoker's cough. He has shortness of breath. He is on oxygen at night. He does not complain of chest pain. He was having nausea following the surgery, but that has resolved. He has no other GI or complaints. He has pain in his left knee and he also complains that his right hip gets sore. He is not having back pain. He does not complain of headache or dizziness. He has some numbness in the fingers of his left hand related to a previous injury. He has some residual numbness in his feet and toes from the chemotherapy. Medications: Aspirin 1 Tablet (of 81 mg) Oral daily, Atorvastatin Calcium 1 Tablet (of 10 mg) Oral daily, hydroCHLOROthiazide 0.5 Tablet (of 25 mg) Oral daily, Metoprolol Tartrate 0.5 Tablet (of 25 mg) Oral b.i.d., [place] Garlic Ear Drops Solution Otic, Multivitamin Adult 1 Tablet Oral daily, Potassium Chloride ER 4 Tablet (of 20 meq) Tablet, controlled release Oral t.i.d., predniSONE (20 mg) Tablet Oral Take as Directed, PROzac 1 Capsule (of 40 mg) Oral daily, Spiriva HandiHaler 2 Puff(s) (of 18 mcg) Capsule Inhalation daily, Symbicort 2 Puff(s) Aerosol Inhalation b.i.d., Vitamin D-Vitamin K Tablet Oral Allergies: Doxycycline Hyclate, Lisinopril, and Losartan Potassium. Vital Signs: Performed on May 07, 2021 11:40 Height - 70.00 in Weight - 202.8 lbs (LOW) BSA - 2.10 sq.m BMI - 29.10 Temperature - 98.0 F (LOW) Pulse - 104 /min (HIGH) Respiration - 20 /min BP - 120/76 mm(hg) O2 Sat - 96 % Pain - 1 Fatigue - 3 Physical Examination: Constitutional - He looks pretty good generally, Eyes - Sclerae nonicteric. Conjunctivae clear, ENMT - No lesions noted in the oral cavity, Hematologic/Lymphatic - No cervical, clavicular, or axillary adenopathy, Respiratory - Lungs sound clear with diminished air movement bilaterally, Cardiovascular - Heart rhythm is regular. There is no murmur, gallop, or rub noted, Abdomen - Soft. The incision appears well-healed. Liver and spleen are not enlarged. There is no abdominal mass or ascites noted and there is no inguinal adenopathy, Extremities - No edema, Neurologic - No focal neurologic deficits noted. Lab/Imaging: Test performed on Jan 07, 2021 10:37 Glucose 113 mg/dL BUN 8 mg/dL Creatinine 1.38 mg/dL Sodium 137 mmol/L Potassium 4.5 mmol/L Chloride 105 mmol/L CO2 25 mmol/L Calcium 8.6 mg/dL WBC 6.1 10^9/L RBC 5.32 10^12/L HGB 16.7 g/dL HCT 49.9 % MCV 93.8 fl MCH 31.4 pg MCHC 33.5 g/dL RDW 13.2 % Platelet Count 199 10^9/L MPV 9.4 fL Neutrophils (Gran) 3.8 10^9/L Lymphocytes 1.5 10^9/L Monocytes 0.6 10^9/L Eosinophils 0.2 10^9/L Basophils 0.0 10^9/L Manual Segs 61.9 % Manual Lymphocytes 24.6 % Manual Monocytes 9.8 % Manual Eosinophils 2.6 % Manual Basophils 0.8 % Atypical Lymphs 1.5 % CEA 2.4 ng/mL Problem List: 1. Moderately differentiated adenocarcinoma of the transverse colon, stage IIIB (T3, N2a, M0) at initial diagnosis in 2018. He has had subsequent progression to stage JCARLOS (M1a) with a documented single metastatic lesion in the left hepatic lobe. 2. Hypertension. 3. Hyperlipidemia. 4. COPD. 5. Obstructive sleep apnea. 6. He has undergone endovascular repair of abdominal aortic aneurysm. 7. Anxiety/depression. 8. He suffered a right hemispheric stroke in association with hospitalization for respiratory failure requiring mechanical ventilation. 9. He was diagnosed with COVID-19 virus infection in June 2020. Problems Addressed with this Encounter and Plan: 1. 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 He underwent subtotal colectomy with partial omentectomy and with placement of ileostomy on 01/23/2019. He was given adjuvant chemotherapy with 4 cycles of oxaliplatin/Xeloda, completed in May 2020. He required dose reductions in the oxaliplatin due to neuropathy, and it was admitted with cycle 4. He was then followed on observation/expectant management. His surveillance CT scans on 01/08/2021 showed an indeterminate but somewhat suspicious lesion in the left hepatic lobe and new compression deformities with associated sclerotic and lytic changes involving the T8 and T9 vertebral bodies. Further evaluation with PET/CT on 01/17/2021 showed a 2.6 cm hypodensity in the left hepatic lobe with SUV 5.8, strongly suspicious for hepatic metastatic disease. Small retroperitoneal lymph nodes appeared to be reactive. There were no findings to indicate osseous or other metastatic disease. With those findings, he was referred to Dr. Mendoza and on 03/05/2021 he underwent exploratory laparotomy with left lateral hepatectomy (resection of segment 2 and 3). Pathology confirmed metastatic colon cancer with negative margins. He now has had progression to stage JCARLOS (M1a), but with disease completely resected. As such, he will continue on observation/expectant management. He will be scheduled for surveillance CT scans in June and for a follow-up visit in September. 2. He also had CT evidence of a left lower lobe pulmonary nodule. It has remained stable during surveillance. Signed By: Mohan Lopez M.D. <<Signature on File>>
== END 2021-05-07 10:16 | disposition home or self-care (01) ==
LOC: ONCMED 10:18
PROVIDERS: PCP Nurse Practitioner; Visit Provider Internal Medicine Medical Oncology
DX: Z08 Encounter for follow-up examination after completed treatment for malignant neoplasm (principal); Z85.038 Personal history of other malignant neoplasm of large intestine; I10 Essential (primary) hypertension; E78.5 Hyperlipidemia, unspecified; J44.9 Chronic obstructive pulmonary disease, unspecified; G47.33 Obstructive sleep apnea (adult) (pediatric); I71.4 Abdominal aortic aneurysm, without rupture; F41.9 Anxiety disorder, unspecified; F32.9 Major depressive disorder, single episode, unspecified; Z86.73 Personal history of transient ischemic attack (TIA), and cerebral infarction without residual deficits; Z86.16 Personal history of COVID-19; Z92.21 Personal history of antineoplastic chemotherapy
CPT/HCPCS: 99214

== ENCOUNTER → 2021-05-20 12:14 | Outpatient (BNVA) | payer OTHER, SELFPAY | PROVIDERS: PCP Nurse Practitioner; Visit Provider Psychiatry & Neurology Neurology | DX: Z79.899 Other long term (current) drug therapy (principal) | CPT/HCPCS: 36415; 80061; 83036 ==

== ENCOUNTER 2021-06-18 08:00 | Outpatient (CLI) | payer MEDICARE, MEDICAID, SELFPAY ==
[2021-05-25 14:47] VITALS: BP 123/82; BMI 29.2
--- NOTE | 2021-06-18 08:07 | CT_ITS ---
WS: [id number] CT CHEST, ABDOMEN AND PELVIS WITH CONTRAST. HISTORY: COLON CANCER TECHNIQUE: Contiguous 5 mm axial imaging performed through the chest, abdomen and pelvis IV contrast, oral contrast has been provided. Coronal and sagittal reformats chest. Coronal and sagittal reformat s through the abdomen and pelvis. All CT scans at [facility] use at least one of these dose o ptimization techniques: automated exposure control; mA and/or kV adjustment per patient size (include s targeted exams where dose is matched to clinical indication); or iterative reconstruction. CONTRAST: Omnipaque 300; 95 mL IV. DLP: 1988.63 mGy.cm COMPARISON: 01/08/2021, 03/19/2020, PET/CT 01/17/[address]: Lungs are hyperexpanded with changes of centrilobular and paraseptal emphysema. No new mass es or nodules are identified. No bronchiectasis. No pericardial or pleural effusions. Mild atheroscle rosis thoracic aorta. More focal intimal thickening and calcification within the descending aorta. No mediastinal or hilar lymph nodes. Abdomen CT: Status post LEFT hepatectomy. Surgical sutures are noted along the surgical site near the falciform ligament. Along the surgical site there is an area of low attenuation which is probably po stsurgical. No suspicious for metastatic disease at this time. Portal vein in the RIGHT lobe is widel y patent. No portal vein thrombosis. Status post cholecystectomy. Normal spleen and pancreas. No adre nal mass. Normal size RIGHT kidney. Stable exophytic 13 mm cyst from the superior medial kidney. Ther e are a few additional hypodensities which are too small to characterize. No obstruction of the kidne y. Focal scarring in the lower pole of the LEFT kidney with adjacent perinephric stranding. Patient i s status post endovascular grafting of the abdominal aorta. No endovascular leak. Just distal to the LEFT common iliac graft there is slight ectasia and dilatation of the solomon artery measuring 1.9 cm. No interval change. New postsurgical changes along the anterior upper abdominal wall with partial hepatectomy. No adenopa thy is identified in the mesentery. No retroperitoneal lymph nodes. Status post subtotal colectomy. O stomy site in the RIGHT lower quadrant. No recurrent tumor at the Mckeon's pouch. Pelvic CT: No free fluid in the pelvis. Visualized bladder is normal. No inguinal lymph nodes. No osteoblastic or osteolytic bone disease. Very mild anterior wedging of T8 and T9. No change since 01/08/2021. CT/CT chest abd pel w con* IMPRESSION: 1. No evidence for recurrent colon cancer or metastatic disease within the ok st, abdomen or pelvis. 2. Since the prior study LEFT hepatectomy. Postsurgical changes along the falc iform ligament. Recommend continued close follow-up to document stability along the surgical site as this is the first examination since the surgery. 3. Subtotal colectomy. Ostomy site in the RIGHT lower quadrant. 4. Prior cholecystectomy. 5. Status post endovascular stent grafting abdominal aorta. 6. No ascites or mesenteric or retroperitoneal lymph nodes. 7. No change minimal compression deformities at T8 and T9.
[2021-06-18 08:49] LABS: Blood Urea Nitrogen 14 mg/dL (8-23); Glomerular Filtration Rate 67.6 mL/min (90-130)
[2021-06-18] MEDS: iohexol 300 mg/mL 100 mL Btl IV (09:31)
== END 2021-06-18 08:01 | disposition home or self-care (01) ==
LOC: RAD 08:03
PROVIDERS: PCP Nurse Practitioner; Visit Provider Internal Medicine Medical Oncology
DX: C18.4 Malignant neoplasm of transverse colon (principal); Z90.49 Acquired absence of other specified parts of digestive tract; Z93.3 Colostomy status
CPT/HCPCS: 71260; 74177; 82565; 84520

== ENCOUNTER → 2021-07-06 07:56 | Outpatient (BNVA) | payer MEDICARE, MEDICAID, SELFPAY ==
[2021-05-25 14:47] VITALS: BP 123/82; BMI 29.2
== END ==
PROVIDERS: PCP Nurse Practitioner; Visit Provider Social Worker Clinical
DX: F33.2 Major depressive disorder, recurrent severe without psychotic features (principal)
CPT/HCPCS: 90834

== ENCOUNTER 2021-09-14 12:44 | Outpatient (CLI) | payer MEDICARE, MEDICAID, SELFPAY ==
[2021-05-25 14:47] VITALS: BP 123/82; BMI 29.2
[2021-09-14 13:14] LABS: Basophils % 0.6 %; Eosinophils # 0.2 10^3/uL (0.0-0.8); Eosinophils % 2.9 %; Hematocrit 47.4 % (42.0-52.0); Hemoglobin 16.2 g/dL (11.7-16.6); Lymphocytes # 1.4 10^3/uL (0.8-4.8); Lymphocytes % 26.2 %; Mean Corpuscular HGB Conc 34.2 g/dL (30.0-36.0); Mean Corpuscular Hemoglobin 31.2 pg (28.0-34.0); Mean Corpuscular Volume 91.2 fl (80-94); Mean Platelet Volume 8.9 fL (7.4-10.4); Monocytes # 0.5 10^3/uL (0.2-0.9); Monocytes % 8.6 %; Neutrophils # 3.22 10^3/uL (1.8-7.7); Neutrophils % 61.5 %; Nucleated Red Blood Cells % 0 %; Platelet Count 152 10^3/cmm (130-400); Red Cell Distribution Width 12.9 % (12.1-15.1); White Blood Count 5.2 10^3/uL (4.0-10.0)
[2021-09-14 13:55] LABS: Carcinoembryonic Antigen 2.8 ng/mL (0.0-4.7)
[2021-09-14 14:06] LABS: Alanine Aminotransferase 28 U/L (0-41); Albumin Level 4.2 g/dL (3.5-5.2); Alkaline Phosphatase 124 IU/L (40-130); Anion Gap 13.3 (5-19); Aspartate Amino Transferase 22 U/L (0-40); Blood Urea Nitrogen 10 mg/dL (8-23); Calcium 9.7 mg/dL (8.5-10.5); Carbon Dioxide 27 mmol/L (22-29); Chloride 101 mmol/L (98-107); Globulin 2.4 g/dL (1.3-4.6); Glomerular Filtration Rate 55.8 mL/min (90-130); Glucose 144 mg/dL (65-115); Osmolality Calculated 286 mOsm/kg (285-295); Potassium 4.3 mmol/L (3.5-5.1); Sodium 137 mmol/L (136-145); Total Bilirubin 0.4 mg/dL (0.15-1.2); Total Protein 6.6 g/dL (6.6-8.7)
--- NOTE | 2021-09-15 07:02 | ONC FU_ITS ---
Dr. Lopez Patient Follow-Up Note Patient: Cuate Brooks Unit #: [id number]: [id number] Dicatated By: Mohan Lopez M.D.Date of Visit:Sep 14, 2021 Onc Med Follow-up/Prog Note Chief Complaint: Colon cancer. 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 He had subsequent progression to stage JCARLOS (M1a) with development of a single metastatic lesion in the left hepatic lobe for which she underwent surgical resection in February 2021. On 01/22/2019 he had presented to the [facility] emergency room with acute onset of right lower quadrant abdominal pain. His CT abdomen/pelvis showed a 4 cm annular constricting neoplasm in the left transverse colon consistent with malignancy. There was distention of the colon proximal to the lesion. There was no other acute abnormality seen. The liver reportedly looked normal and there was no abdominal or retroperitoneal lymphadenopathy noted. He was transferred to [facility] and on 01/23/2019 he underwent exploratory laparotomy with subtotal colectomy, en bloc partial omentectomy, and end ileostomy. The findings included a constricting tumor in the distal transverse colon with omentum adhered to it. There was ascites present, but there was no gross evidence of metastatic disease and there was no evidence of bowel perforation. The procedure was extended to include a subtotal colectomy due to his inferior mesenteric artery hadn't been compromised by a previous endovascular aneurysm repair. Pathology showed moderately differentiated adenocarcinoma with invasion through the muscularis propria into the pericolonic fat. The serosal surface was noted to be free by 0.24 mm. A total of 5 incidental tubular adenomas were noted in the surgical specimen. There was involvement in 4 of 53 lymph nodes. I had seen him initially on 03/05/2019. With stage IIIB disease, he was recommended to undergo adjuvant chemotherapy with 4 cycles of oxaliplatin/Xeloda. He began cycle 1 on 03/15/2019. 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 He had a further dose reduction with cycle 3 on 05/02/2019. Following a delay due to worsening neuropathy, he began his 4th cycle on 05/31/2019 with omission of the oxaliplatinin. Restaging PET/CT on 07/14/2019 showed no evidence for recurrent or residual malignancy. He was then followed on observation/expectant management. His subsequent clinical course was complicated by a hospitalization for respiratory failure requiring mechanical ventilation. It was then further complicated by a stroke which left him weak on his left side. He had gradual recovery. His surveillance CT scans on 01/08/2021 showed a hypoechoic area in the left lobe of the liver measuring 12 mm. It may have been present on the prior study, but with slight increase in size. The appearance was indeterminate, but early metastatic disease was not excluded. Also noted were new compression deformities with mixed sclerotic and lytic changes involving the T8 and T9 vertebral bodies. Metastatic pathologic fractures were not excluded. Further evaluation with PET/CT on 01/17/2021 showed a 2.6 cm hypodensity in the left hepatic lobe with SUV 5.8, strongly suspicious for hepatic metastatic disease. Small retroperitoneal lymph nodes appeared to be reactive. There were no findings to indicate osseous or other metastatic disease. With those findings, he was referred to Dr. Mendoza and on 03/05/2021 he underwent exploratory laparotomy with left lateral hepatectomy (resection of segment 2 and 3). Pathology confirmed metastatic colon cancer with negative margins. I had seen him for follow-up in May 2021. He had recovered pretty well from the surgery. Given his underlying medical illnesses and his somewhat marginal performance status, I did not attempt any further adjuvant chemotherapy. His medical illnesses include hypertension, hyperlipidemia, COPD, obstructive sleep apnea, and depression. He had previously been on CT surveillance for a left lower lobe pulmonary nodule. His surgical history includes a previous endovascular repair of abdominal aortic aneurysm. He has history of smoking 1 pack of cigarettes daily for 45 years. INTERIM HISTORY: Surveillance CT scans on 06/18/2021 showed no evidence for recurrent or metastatic disease within the chest, abdomen, or pelvis. There were postoperative changes associated with the left hepatectomy and the subtotal colectomy. There was evidence for previous endovascular stent grafting to the abdominal aorta. There was no change in the minimal compression deformities at T8 and T9. He is seen for a follow-up visit. He says his energy is still kind of low, but he is able to do some light work. His ECOG score is 1. He says that since June his shoulders have been sore, and he has been scheduled to have further evaluation with MRI. He has good appetite. He has no fever or night sweats. He has not had sore mouth or throat. He does have a cough which he attributes to smoking, though does tend to bother him mostly at night. He uses a pulmonary nebulizer or he takes prednisone occasionally for shortness of breath, but overall his breathing has been pretty good. He does not complain of chest pain. He currently has no GI or complaints. He also complains that his left knee has been popping. He does not complain of headache. He occasionally has dizziness. He still has numbness/tingling in his fingers, which comes and goes. Medications: Aspirin 1 Tablet (of 81 mg) Oral daily, Metoprolol Tartrate 0.5 Tablet (of 25 mg) Oral b.i.d., [place] Garlic Ear Drops Solution Otic, Multivitamin Adult 1 Tablet Oral daily, Potassium Chloride ER (20 meq) Tablet, controlled release Oral Take as Directed, Pravastatin Sodium 1 Tablet (of 40 mg) Oral daily, PROzac 1 Capsule (of 40 mg) Oral daily, Spiriva HandiHaler 2 Puff(s) (of 18 mcg) Capsule Inhalation daily, Symbicort 2 Puff(s) Aerosol Inhalation b.i.d., Vitamin D3 1 Tablet (of 3000 International Units/mL) Oral daily Allergies: Doxycycline Hyclate, Lisinopril, and Losartan Potassium. Vital Signs: Performed on Sep 14, 2021 14:34 Height - 70.00 in Weight - 201.4 lbs (LOW) BSA - 2.09 sq.m BMI - 28.90 Temperature - 98.1 F (LOW) Pulse - 90 /min Respiration - 16 /min BP - 158/78 mm(hg) (HIGH) O2 Sat - 97 % Pain - 0 Fatigue - 7 Physical Examination: Constitutional - He looks pretty good generally, Eyes - Sclerae nonicteric. Conjunctivae clear, ENMT - No lesions noted in the oral cavity, Hematologic/Lymphatic - No cervical, clavicular, or axillary adenopathy, Respiratory - Lungs sound clear with diminished air movement bilaterally, Cardiovascular - Heart rhythm is regular. There is no murmur, gallop, or rub noted, Abdomen - Soft. Liver and spleen are not enlarged. There is no abdominal mass or ascites noted and there is no inguinal adenopathy, Extremities - No edema, Neurologic - No focal neurologic deficits noted. Lab/Imaging: Test performed on Sep 14, 2021 13:00 Sodium 137 mmol/L Potassium 4.3 mmol/L Chloride 101 mmol/L CO2 27 mmol/L Anion Gap 13.3 BUN 10 mg/dL Creatinine 1.3 mg/dL Cr Clearance (Est) 75.15 mL/min eGFR 55.8 mL/min Glucose 144 mg/dL Osmolality - Calculated 286 mOsm/kg Calcium 9.7 mg/dL Protein, Total 6.6 g/dL Albumin 4.2 g/dL Globulin 2.4 g/dL Bilirubin, Total 0.4 mg/dL ALT (SGPT) 28 U/L AST (SGOT) 22 U/L Alkaline Phosphatase 124 IU/L WBC 5.2 10 3/uL RBC 5.20 10 6/uL HGB 16.2 g/dL HCT 47.4 % MCV 91.2 fl MCH 31.2 pg MCHC 34.2 g/dL RDW 12.9 % Platelet Count 152 10 3/cmm MPV 8.9 fL Neutrophils 3.22 10 3/uL Lymphocytes 1.4 10 3/uL Monocytes 0.5 10 3/uL Eosinophils 0.2 10 3/uL Basophils 0.0 10 3/uL Neutrophil % 61.5 % Lymphocyte % 26.2 % Monocyte % 8.6 % Eosinophil % 2.9 % Basophils % 0.6 % NRBC % 0 % CEA 2.8 ng/mL Problem List: 1. Moderately differentiated adenocarcinoma of the transverse colon, stage IIIB (T3, N2a, M0) at initial diagnosis in 2018. He had subsequent progression to stage JCARLOS (M1a) with a documented single metastatic lesion in the left hepatic lobe. 2. Hypertension. 3. Hyperlipidemia. 4. COPD. 5. Obstructive sleep apnea. 6. He has undergone endovascular repair of abdominal aortic aneurysm. 7. Anxiety/depression. 8. He suffered a right hemispheric stroke in association with hospitalization for respiratory failure requiring mechanical ventilation. 9. He was diagnosed with COVID-19 virus infection in June 2020. Problems Addressed with this Encounter and Plan: 1. 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 He underwent subtotal colectomy with partial omentectomy and with placement of ileostomy on 01/23/2019. He was given adjuvant chemotherapy with 4 cycles of oxaliplatin/Xeloda, completed in May 2020. He required dose reductions in the oxaliplatin due to neuropathy, and it was admitted with cycle 4. He was then followed on observation/expectant management. His surveillance CT scans on 01/08/2021 showed an indeterminate but somewhat suspicious lesion in the left hepatic lobe and new compression deformities with associated sclerotic and lytic changes involving the T8 and T9 vertebral bodies. Further evaluation with PET/CT on 01/17/2021 showed a 2.6 cm hypodensity in the left hepatic lobe with SUV 5.8, strongly suspicious for hepatic metastatic disease. Small retroperitoneal lymph nodes appeared to be reactive. There were no findings to indicate osseous or other metastatic disease. With those findings, he was referred to Dr. Mendoza and on 03/05/2021 he underwent exploratory laparotomy with left lateral hepatectomy (resection of segment 2 and 3). Pathology confirmed metastatic colon cancer with negative margins. With evidence of a single site of metastatic disease in the liver, his disease had progressed to stage JCARLOS (M1a), but it was completely resected. Given his underlying medical illnesses and somewhat marginal performance status, I opted not to attempt any further chemotherapy. He has continued on expectant management, thus far with no evidence of any further recurrence of the colon cancer. He is scheduled to have surveillance CT scans done again in [place] in the early part of November. I will plan to see him for a follow-up visit in 3 months. 2. He also had CT evidence of a left lower lobe pulmonary nodule. Thus far during follow-up there has been no progression. Signed By: Mohan Lopez M.D. <<Signature on File>>
== END 2021-09-14 12:45 | disposition home or self-care (01) ==
PROVIDERS: PCP Nurse Practitioner; Visit Provider Internal Medicine Medical Oncology
DX: C18.4 Malignant neoplasm of transverse colon (principal); C78.7 Secondary malignant neoplasm of liver and intrahepatic bile duct; G62.0 Drug-induced polyneuropathy; T45.1X5A Adverse effect of antineoplastic and immunosuppressive drugs, initial encounter; R91.1 Solitary pulmonary nodule; Z79.899 Other long term (current) drug therapy; Z86.73 Personal history of transient ischemic attack (TIA), and cerebral infarction without residual deficits; Z86.16 Personal history of COVID-19
CPT/HCPCS: 36415; 80053; 82378; 85025; 99214

== ENCOUNTER → 2021-10-28 12:05 | Outpatient (BNVA) | payer MEDICARE, MEDICAID, OTHER, SELFPAY ==
[2021-05-25 14:47] VITALS: BP 123/82; BMI 29.2
== END ==
PROVIDERS: PCP Nurse Practitioner; Visit Provider Psychiatry & Neurology Psychiatry
DX: F41.9 Anxiety disorder, unspecified (principal); F32.9 Major depressive disorder, single episode, unspecified; Z79.899 Other long term (current) drug therapy
CPT/HCPCS: 80061; 83036

== ENCOUNTER → 2021-12-11 09:31 | Outpatient (BNVA) | payer MEDICARE, MEDICAID, SELFPAY ==
[2021-05-25 14:47] VITALS: BP 123/82; BMI 29.2
== END ==
PROVIDERS: PCP Nurse Practitioner; Referring Provider Internal Medicine Medical Oncology; Visit Provider Internal Medicine Medical Oncology
DX: C18.9 Malignant neoplasm of colon, unspecified (principal)
CPT/HCPCS: 80053; 83615; 85025

== ENCOUNTER 2021-12-15 14:13 | Oncology outpatient (recurring) (ONCR) | payer MEDICARE, MEDICAID, SELFPAY ==
[2021-05-25 14:47] VITALS: BP 123/82; BMI 29.2
== END 2021-12-15 23:59 | disposition home or self-care (01) ==
PROVIDERS: PCP Nurse Practitioner; Visit Provider Nurse Practitioner Family
DX: Z08 Encounter for follow-up examination after completed treatment for malignant neoplasm (principal); Z85.038 Personal history of other malignant neoplasm of large intestine; Z85.05 Personal history of malignant neoplasm of liver; R91.1 Solitary pulmonary nodule; Z92.21 Personal history of antineoplastic chemotherapy
CPT/HCPCS: 99214; G0463

== ENCOUNTER → 2022-04-01 12:57 | Outpatient (BNVA) | payer MEDICARE, MEDICAID, SELFPAY ==
[2021-05-25 14:47] VITALS: BP 123/82; BMI 29.2
== END ==
PROVIDERS: PCP Nurse Practitioner; Visit Provider Internal Medicine Medical Oncology
DX: C18.9 Malignant neoplasm of colon, unspecified (principal); C78.7 Secondary malignant neoplasm of liver and intrahepatic bile duct
CPT/HCPCS: 80053; 85025

== ENCOUNTER 2022-04-06 08:18 | Oncology outpatient (recurring) (ONCR) | payer MEDICARE, MEDICAID, SELFPAY ==
[2021-05-25 14:47] VITALS: BP 123/82; BMI 29.2
[2022-04-06 09:53] LABS: Carcinoembryonic Antigen 2.7 ng/mL (0.0-4.7)
== END 2022-05-05 23:59 | disposition home or self-care (01) ==
PROVIDERS: Internal Medicine Medical Oncology; PCP Nurse Practitioner; Visit Provider Nurse Practitioner Family
DX: Z08 Encounter for follow-up examination after completed treatment for malignant neoplasm (principal); Z85.038 Personal history of other malignant neoplasm of large intestine; Z90.49 Acquired absence of other specified parts of digestive tract; Z92.21 Personal history of antineoplastic chemotherapy; F17.210 Nicotine dependence, cigarettes, uncomplicated
CPT/HCPCS: 36415; 82378; 99213

== ENCOUNTER → 2022-08-09 09:53 | Outpatient (BNVA) | payer MEDICARE, MEDICAID, SELFPAY ==
[2021-05-25 14:47] VITALS: BP 123/82; BMI 29.2
== END ==
PROVIDERS: PCP Nurse Practitioner; Visit Provider Internal Medicine Medical Oncology
DX: C18.9 Malignant neoplasm of colon, unspecified (principal); C78.7 Secondary malignant neoplasm of liver and intrahepatic bile duct
CPT/HCPCS: 80053; 82378; 85025

== ENCOUNTER 2022-08-11 12:04 | Oncology outpatient (recurring) (ONCR) | payer MEDICARE, MEDICAID, SELFPAY ==
[2021-05-25 14:47] VITALS: BP 123/82; BMI 29.2
== END 2022-09-03 23:59 | disposition home or self-care (01) ==
PROVIDERS: PCP Nurse Practitioner; Visit Provider Nurse Practitioner Family
DX: Z08 Encounter for follow-up examination after completed treatment for malignant neoplasm (principal); Z85.038 Personal history of other malignant neoplasm of large intestine; Z85.05 Personal history of malignant neoplasm of liver; F17.210 Nicotine dependence, cigarettes, uncomplicated; Z90.49 Acquired absence of other specified parts of digestive tract; Z92.21 Personal history of antineoplastic chemotherapy; Z93.2 Ileostomy status
CPT/HCPCS: 99213

== ENCOUNTER → 2022-08-17 09:43 | Outpatient (BNVA) | payer MEDICARE, MEDICAID, SELFPAY ==
[2021-05-25 14:47] VITALS: BP 123/82; BMI 29.2
== END ==
PROVIDERS: PCP Nurse Practitioner; Visit Provider Internal Medicine Medical Oncology
DX: C18.9 Malignant neoplasm of colon, unspecified (principal); C78.7 Secondary malignant neoplasm of liver and intrahepatic bile duct
CPT/HCPCS: 85025

== ENCOUNTER → 2022-11-11 09:14 | Outpatient (BNVA) | payer MEDICARE, OTHER, SELFPAY ==
[2021-05-25 14:47] VITALS: BP 123/82; BMI 29.2
== END ==
PROVIDERS: PCP Nurse Practitioner; Visit Provider Internal Medicine Medical Oncology
DX: C18.9 Malignant neoplasm of colon, unspecified (principal); C78.7 Secondary malignant neoplasm of liver and intrahepatic bile duct
CPT/HCPCS: 80053; 82378; 85025

== ENCOUNTER 2022-11-15 12:03 | Oncology outpatient (recurring) (ONCR) | payer MEDICARE, MEDICAID, SELFPAY ==
[2021-05-25 14:47] VITALS: BP 123/82; BMI 29.2
== END 2022-12-03 23:59 | disposition home or self-care (01) ==
PROVIDERS: PCP Nurse Practitioner; Visit Provider Nurse Practitioner Family
DX: Z08 Encounter for follow-up examination after completed treatment for malignant neoplasm (principal); Z85.038 Personal history of other malignant neoplasm of large intestine; Z85.05 Personal history of malignant neoplasm of liver; F17.210 Nicotine dependence, cigarettes, uncomplicated; Z90.49 Acquired absence of other specified parts of digestive tract; Z92.21 Personal history of antineoplastic chemotherapy; Z93.2 Ileostomy status; R91.1 Solitary pulmonary nodule; F32.9 Major depressive disorder, single episode, unspecified; Z90.89 Acquired absence of other organs
CPT/HCPCS: 99213

== ENCOUNTER → 2023-05-06 09:20 | Outpatient (BNVA) | payer MEDICARE, MEDICAID, SELFPAY ==
[2021-05-25 14:47] VITALS: BP 123/82; BMI 29.2
== END ==
PROVIDERS: PCP Nurse Practitioner; Referring Provider Internal Medicine Medical Oncology; Visit Provider Internal Medicine Medical Oncology
DX: C18.9 Malignant neoplasm of colon, unspecified (principal); C78.7 Secondary malignant neoplasm of liver and intrahepatic bile duct
CPT/HCPCS: 80053; 82378; 85025

== ENCOUNTER 2023-05-11 14:10 | Oncology outpatient (recurring) (ONCR) | payer MEDICARE, MEDICAID, SELFPAY ==
[2021-05-25 14:47] VITALS: BP 123/82; BMI 29.2
== END 2023-06-05 23:59 | disposition home or self-care (01) ==
LOC: ONCMED 14:10
PROVIDERS: PCP Nurse Practitioner; Visit Provider Nurse Practitioner Family
DX: Z08 Encounter for follow-up examination after completed treatment for malignant neoplasm (principal); Z85.038 Personal history of other malignant neoplasm of large intestine; Z85.05 Personal history of malignant neoplasm of liver; F17.210 Nicotine dependence, cigarettes, uncomplicated; Z90.49 Acquired absence of other specified parts of digestive tract; Z92.21 Personal history of antineoplastic chemotherapy; Z93.2 Ileostomy status
CPT/HCPCS: 99213

== ENCOUNTER → 2023-10-17 12:57 | Outpatient (BNVA) | payer MEDICARE, OTHER, SELFPAY ==
[2021-05-25 14:47] VITALS: BP 123/82; BMI 29.2
== END ==
PROVIDERS: PCP Nurse Practitioner; Visit Provider Nurse Practitioner Family
DX: M25.512 Pain in left shoulder (principal); R94.31 Abnormal electrocardiogram [ECG] [EKG]
CPT/HCPCS: 93005

== ENCOUNTER 2024-09-15 22:02 | Emergency (ER) | payer MEDICARE, MEDICAID, SELFPAY ==
[2021-05-25 14:47] VITALS: BP 123/82; BMI 29.2
--- NOTE | 2024-09-15 22:05 | XRR_ITS ---
PROCEDURE INFORMATION: Exam: XR Left Hand Exam date and time: 09/15/2024 10:09 PM Age: 64 years old Clinical indication: Injury or trauma; Other: Tractor accident, lac to left hand; Laceration TECHNIQUE: Imaging protocol: Radiologic exam of the left hand. Views: 3 or more views. COMPARISON: No relevant prior studies available. FINDINGS: Bones/joints: No acute fractures are appreciated. Soft tissues: Possible punctate retained metallic foreign body overlies the dorsal aspect of the proximal phalanx of the 3rd digit. This is very shallow and might even reside upon the skin. XR/XR hand LT min 3V* [id number] IMPRESSION: Possible punctate retained metallic foreign body as described. No acute fracture seen.
[2024-09-15 22:12] VITALS: BP 116/75; PULSE 93; RESP 18; TEMP 36.6; O2SAT 91; BMI 27.1
--- NOTE | 2024-09-15 22:20 | W.ED.WOUNDLC ---
HPI - Wound/Laceration General: Chief Complaint: Wound/Laceration Stated Complaint: Tractor fell on L hand Time Seen by Provider: 09/15/24 22:12 Source: patient Mode of arrival: ambulatory Limitations: no limitations History of Present Illness: Patient is a 64-year-old male who presents to ED today for evaluation of multiple lacerations involving his left hand. Patient states he somehow cut his hand when his tractor tipped over. He states there is no crush injury. Tetanus is up-to-date. He denies any other injury sustained during the incident. He maintains full range of motion of all of his left hand digits. Denies numbness, tingling, loss of sensation. He has no bony tenderness to the hand/digits. Not sure what he would have cut it on. Onset (ago): hour(s) Extremity Location: Left: hand Place: home Patient tetanus UTD: Yes Context: accidental Associated symptoms: Reports no associated symptoms Treatments prior to arrival: bandage Related Data Home Medications ?Medication ?Instructions ?Recorded ?Confirmed albuterol sulfate 1.25 mg/3 mL 1.25 mg inhalation DAILY PRN 07/29/19 07/26/24 solution for nebulization budesonide-formoterol HFA 160 2 puff inhalation BID 07/29/19 07/26/24 mcg-4.5 mcg/actuation aerosol inhaler (Symbicort) metoprolol tartrate 25 mg tablet 12.5 mg PO BID 07/29/19 07/26/24 tiotropium bromide 2.5 2 puff inhalation DAILY 07/29/19 07/26/24 mcg/actuation mist for inhalation (Spiriva Respimat) cholecalciferol (vitamin D3) 125 125 mcg PO DAILY 02/18/21 07/26/24 mcg (5,000 unit) tablet potassium chloride 20 mEq 40 meq PO BID 02/18/21 07/26/24 tablet,extended release(part/cryst) atorvastatin 40 mg tablet 40 mg PO DAILY 04/06/22 07/26/24 hydrochlorothiazide 12.5 mg tablet 12.5 mg PO DAILY 04/06/22 07/26/24 aspirin 81 mg tablet,delayed 81 mg PO DAILY 12/09/23 07/26/24 release (Adult Aspirin Regimen) Previous Rx's ?Medication ?Instructions ?Recorded cyclobenzaprine 10 mg tablet 10 mg PO TID PRN muscle spasm #20 10/17/23 tabs amlodipine 5 mg tablet 5 mg PO DAILY #30 tabs 12/09/23 fluoxetine 20 mg capsule (Prozac) 20 mg PO BID 30 days #60 caps 03/16/24 diazepam 10 mg tablet 10 mg PO DAILY PRN anxiety 30 days 04/06/24 #30 tabs bupropion HCl 75 mg tablet 75 mg PO DAILY 30 days #30 tabs 06/07/24 cephalexin 500 mg capsule 500 mg PO Q6H 7 days #28 caps 09/15/24 Allergies Allergy/AdvReac Type Severity Reaction Status Date / Time doxycycline Allergy unknown Verified 09/15/24 22:20 lisinopril Allergy unknown Verified 09/15/24 22:20 lorazepam (From Ativan) Allergy Unknown Verified 09/15/24 22:20 losartan Allergy unknown Verified 09/15/24 22:20 Review of Systems Card: Denies: chest pain Resp: Denies: dyspnea GI: Denies: abdominal pain Musc: Reports: extremity pain (L hand); Denies: neck pain or back pain Skin/Breast: Reports: other (multiple lacerations L hand) Neuro: Denies: headache(s), numbness in extremities, sensory changes or difficulty walking PFSH ED PFSH: Medical History HTN (hypertension) with goal to be determined History of stroke Chronic kidney disease Hyperlipidemia COPD (chronic obstructive pulmonary disease) Hypertension Sleep apnea, obstructive Colon cancer metastasized to liver Anxiety MDD (major depressive disorder) Problems related to lack of adequate sleep Psychiatric care Surgical History History of cataract surgery History of resection of liver (03/05/21) Exploratory laparotomy with left lateral hepatectomy History of partial colectomy (01/23/19) Exploratory laparotomy with subtotal colectomy, en bloc partial omentectomy, and end ileostomy Hx of tonsillectomy Status post endovascular aneurysm repair History of cholecystectomy Family History Mother Graves disease Father CAD (coronary artery disease) Social History Smoking and tobacco/nicotine status: current every day tobacco/nicotine user cigarettes Packs smoked per day: 1.25 Years cigarettes smoked: 50 Quit status (tobacco/nicotine): considering quitting Second hand smoke exposure: No Alcohol intake: current Alcohol intake frequency: few times a month Alcohol type: beer Substance/Drug Use: never Adopted: No Caregiver/support person: No Lives independently: Yes Household members: other Details: Ex- Housing: House Marital status: Number of children: 4 Number of grandchildren: 5 Highest education level completed: 12th Grade, No Diploma service: No Current occupational status: unemployed Current occupational exposures/hazards: No Pets and animals: Yes Pets & animals: cat(s) Leisure activites: reading Sexually active: No Current gender identity: Male Elysia/Zoroastrianism: None Special elysia needs: No Agree to transfusion: Yes Physical Exam Const: COMMON NORMALS: no acute distress, average body habitus, patient oriented x3, no limitations, healthy appearing, alert and well nourished GENERAL APPEARANCE: cooperative HENMT: COMMON NORMALS: normocephalic and atraumatic HEAD & SCALP: normal to inspection, normocephalic and atraumatic FACE & SINUS: normal facial exam Neck/C-Spine: COMMON NORMALS: full ROM CERVICAL SPINE: No Cervical spine tenderness Chest: COMMONS NORMALS: normal inspection of the chest and normal palpation of entire chest wall Resp: COMMON NORMALS: normal respiratory effort and clear to auscultation bilaterally AUSCULTATION: clear to auscultation bilaterally Cardio: COMMON NORMALS: regular rate and regular rhythm RATE: regular rate RHYTHM: regular rhythm GI: COMMON NORMALS: Normal to inspection, nondistended, normoactive bowel sounds present, Soft to palpation and non-tender PALPATION: Yes Soft to palpation Back/Pelvis: COMMON NORMALS: thoracic and lumbar spine normal to inspection and no thoracic nor lumbar tenderness Extremity: COMMON NORMALS: full ROM and capillary refill normal GENERAL: Yes normal exam except as noted LEFT UPPER EXTREMITY: Yes hand & digits Left hand and digits: Yes inspection (multiple palmar surface lacerations to 3-5 digits), Yes ROM (normal), Yes neurovascular exam (normal) and Yes tendon exam (normal) Neuro: COMMON NORMALS: patient oriented x3, moves all extremities, no focal motor deficits, no sensory deficits noted and gait normal SENSORIUM/ORIENTATION: Yes alert Skin: NARRATIVE SKIN EXAM: see above Procedures Laceration Laceration 1: Site: hand Side (If applicable): left Description: linear Depth: simple, single layer Local Anesthetic: lidocaine 2% Amount of anesthesia used (mL): 5.0 Pre-repair: wound explored and irrigated extensively Skin layer closed with: nylon Size (cm): 4-0 and 5-0 Number of sutures: 15 Technique: simple, interrupted Course Vital Signs: Vital signs: Vital Signs Temperature 98 F 09/15/24 22:12 Pulse Rate 93 09/15/24 22:12 Respiratory Rate 18 09/15/24 22:12 Blood Pressure 116/75 09/15/24 22:12 Pulse Oximetry 91 09/15/24 22:12 Oxygen Delivery Me thod Room Air 09/15/24 22:12 MDM - Wound/Laceration Medical Decision Making Patient with multiple lacerations to palmar aspect of L hand/digits. XR unremarkable. Wounds copiously irrigated. 4+ total lacerations were sutured using 15 sutures total. NV intact. Full ROM. Tetanus is up to date. Will cover with abx prophylactically. Wound care/infection precautions discussed. Differential Diagnosis Likely laceration Lab Data Radiology Impressions Hand X-Ray 09/15/24 22:05 IMPRESSION: Possible punctate retained metallic foreign body as described. No acute fracture seen. All radiology interpretation(s) finalized by discharge Discharge Plan Discharge Patient Disposition: Home Clinical Impression: Laceration of multiple sites of left hand and fingers Qualifiers: Encounter type: initial encounter Qualified Code(s): S61.412A - Laceration without foreign body of left hand, initial encounter Condition: Stable Prescriptions: New cephalexin 500 mg capsule 500 mg PO Q6H 7 Days Qty: 28 0RF No Action Spiriva Respimat 2.5 mcg/actuation mist 2 puff INHALATION DAILY albuterol sulfate 1.25 mg/3 mL solution for nebulization 1.25 mg INHALATION DAILY PRN metoprolol tartrate 25 mg tablet 12.5 mg PO BID Symbicort 160-4.5 mcg/actuation HFA aerosol inhaler 2 puff INHALATION BID potassium chloride 20 mEq tablet,ER particles/crystals 40 meq PO BID aspirin [Adult Aspirin Regimen] 81 mg tablet,delayed release (DR/EC) 81 mg PO DAILY cholecalciferol (vitamin D3) 125 mcg (5,000 unit) tablet 125 mcg PO DAILY atorvastatin 40 mg tablet 40 mg PO DAILY fluoxetine [Prozac] 20 mg capsule 20 mg PO BID 30 Days Qty: 60 5RF hydrochlorothiazide 12.5 mg tablet 12.5 mg PO DAILY cyclobenzaprine 10 mg tablet 10 mg PO TID PRN (Reason: muscle spasm) Qty: 20 0RF diazepam 10 mg tablet 10 mg PO DAILY PRN (Reason: anxiety) 30 Days Qty: 30 5RF amlodipine 5 mg tablet 5 mg PO DAILY Qty: 30 1RF bupropion HCl 75 mg tablet 75 mg PO DAILY 30 Days Qty: 30 5RF Discharge Orders: Discharge ED (Routine); Ordered 09/15/24 Ordered By: Iraida Carrion Referrals: Martha Miller FNP [Primary Care Provider] - Patient Instructions: Laceration (DC), Finger Laceration (ED) Activity Restrictions/Additional Instructions: Keep wound/laceration clean with warm soap and water twice daily. Monitor for signs of infection such as redness, swelling, increased pain, or drainage. Please seek medical re-evaluation if these occur. If you received sutures today these will need to be removed (unless you were told by the provider that they are absorbable). The provider should have discussed with you the length of time until removal-7 to 10 days. Print Language: Japanese Coding Level of Care Code ED Respiratory Care Faculty for Miguel Ángel Rojas
[2024-09-15] MEDS: lidocaine 2% INJ 20 mL INJECTION (22:38)
[2024-09-15 23:32] VITALS: BP 130/81; PULSE 89; O2SAT 96
--- NOTE | 2024-09-15 23:32 | PC.NURSE ---
Wounds irrigated with betadine and sterile water.
== END 2024-09-15 23:35 | disposition home or self-care (01) ==
PROVIDERS: Emergency Provider Physician Assistant; PCP Nurse Practitioner Family
DX: S61.412A Laceration without foreign body of left hand, initial encounter (principal); Z79.82 Long term (current) use of aspirin; V84.4XXA Person injured while boarding or alighting from special agricultural vehicle, initial encounter; J44.9 Chronic obstructive pulmonary disease, unspecified; E78.5 Hyperlipidemia, unspecified; I10 Essential (primary) hypertension; Z86.73 Personal history of transient ischemic attack (TIA), and cerebral infarction without residual deficits
CPT/HCPCS: 12004; 73130; 99283; J9999